=== PATIENT | female | born 1995 | race Caucasian/White ===

== ENCOUNTER 2016-03-11 09:22 | Emergency (ER) | payer OTHER ==
[~2016-03-11] VITALS: Ht 165.1 cm; Wt 47.3 kg
[~2016-03-11 09:22] MED LIST: CIPR-232 PO; CYCL10TA9 PO; Implanon IMPLANT; ONDA4TAB9 PO; OXYC1TAB24 PO; Oxycodone Hcl PO; PHEN-777 PO; SULF1TAB7 PO
[2016-03-11 09:27] VITALS: BP 132/73; PULSE 97; RESP 20; O2SAT 99
--- NOTE | 2016-03-11 09:32 | ED.REPORT ---
HPI-General Illness Date of Service Mar 11, 2016 ED Provider: Kaden Mckoy DO 21 year old female with a reported history of ovarian cysts presents to the ER referred from urgent care after being diagnosed with Bartholin's cyst, ovarian cyst(by bimanual exam only), and UTI three days ago. She states that her symptoms markedly worsened today with increased abdominal pain, nausea, and vomiting. Associated symptoms include low grade fever, and chills. Patient was seen by her OBGYN, Dr. Mixon, two days ago who advised her to continue prescribed antibiotics and follow up with her PCP, Judi ZAFAR, next week. She also notes that she has bilateral low back pain which seems to be worse on the left side. Nursing Notes Stated Complaint: has cysts on antibiotics, vomiting Chief Complaint: Female Abdominal Pain Nursing Notes Reviewed: Yes Allergies: Coded Allergies: ketorolac (Verified Allergy, Unknown, tremors, nausea and vomiting, 03/11/16 ) Scheduled ([Implanon]) 68 MG IMPLANT Q3 years Current Implanon (etonogestrel) implant (L. arm) inserted on 10/06/2011 and will on 10/05/2014. Ciprofloxacin (Cipro) 250 Mg Tablet 500 MG PO BID Cyclobenzaprine (Cyclobenzaprine) 10 Mg Tablet 10 MG PO HS Phenazopyridine (Phenazopyridine) 200 Mg Tablet 200 MG PO TID Sulfamethoxazole/Trimeth 800-160 mg (Bactrim DS) 1 Each Tablet 1 TABLET PO BID Scheduled PRN ([Oxycodone Hcl]) 5 MG TABLET 5-10 MG PO Q4H PRN PRN For Pain Hydrocodone-Acetaminophen 5-325 mg (Hydrocodone-Acetaminophen 5-325 mg) 1 Each Tablet 1 TABLET PO Q4H PRN PRN For Pain Ondansetron ODT (Zofran ODT) 4 Mg Tablet 4 MG PO Q4H PRN PRN For Nausea Ondansetron ODT (Zofran ODT) 4 Mg Tablet 4 MG PO Q4H PRN PRN For Nausea oxyCODONE-Acetaminophen 5-325 mg (oxyCODONE-Acetaminophen 5-325 mg) 1 Each Tablet 1-2 TAB PO Q6H PRN PRN For Pain General Time Seen by MD: 09:31 Chief Complaint Abdominal pain, Vomiting Hx Obtained From: Patient Arrived By: Walk-in Sudden in Onset?: No Onset Occurred: 3 days ago Symptom Duration: Since onset Location: : Abdomen Quality: Painful Severity: Current: Moderate Severity: Maximum: Moderate Associated with: Reports: Fever, Nausea, Vomiting, Denies: Rash Additional Notes: Chills Similar Sx Previous: Yes Past Medical History Past Medical History Fibromyalgia Migraines Anxiety medicated with Xanax Pineal gland cyst Chronic back pain Past Surgical History lara fundoplication Reports: Appendectomy, Tonsillectomy Smoking History Never Smoker Social History Alcohol Use: "Social" Drug Use: Denies drug use Ambulatory Status Independent Review of Systems Full Review of Systems Constitutional: Reports: Chills, Fever Respiratory: Denies: Non-productive cough, Shortness of breath Cardiovascular: Denies: Chest pain GI: Reports: Abdominal pain, Nausea, Vomiting, Denies: Constipation, Diarrhea Female: Reports: Flank pain, Pelvic pain Musculoskeletal: Reports: Back pain, Lumbar pain Skin: Denies Rash Complete sys rev & neg: except as marked. Physical Exam Vital Signs Vital Signs Date Time Temp Pulse Resp B/P Pulse Ox O2 Delivery O2 Flow Rate FiO2 03/11/16 12:53 97 16 129/70 99 Room Air 03/11/16 09:27 36.3 97 20 132/73 99 Initial VS: Reviewed General/Constitutional: Well-developed, Well-nourished Head / Eyes: Atraumatic, Normocephalic Neck: Supple, Non-tender, Full range of motion Extremities: Vascular intact, Neuro intact, No swelling, No tenderness Skin: Warm, Dry, No cyanosis Neurologic: Alert, Oriented, Nonfocal Respiratory / Chest: Breath sounds NL, No respiratory distress, No rales, No rhonchi, No wheezing Cardiovascular: Heart rate NL, Regular rhythm, Heart sounds NL, Cap refill not delayed, Peripheral circulation NL Abdomen: Soft, No guarding, No rebound Tenderness/Guarding/Rebound: Positive: Tender LLQ... (Moderate) Back: Full range of motion Flank / Spine / Paraspinal: Positive: Lumbar spine tender... Bilateral CVA tenderness, Left > Right Female Genitourinary: Slip Dumper present, Atraumatic, External genitalia NL, No lesions or rash No mass Normal appearance Tender left vulva Interpretation & Diagnostics Lab Results Interpretation Result Diagram: 03/11/16 1003 03/11/16 1003 Test 03/11/16 09:40 03/11/16 10:03 Urine Color Straw (YELLOW) Urine Appearance Cloudy (CLEAR,HAZY) Urine pH 8.5 (5.0-8.0) Urine Specific [place] 1.020 (1.003-1.035) Urine Protein Tracemg/dL (NEG,TRACE) Urine Glucose (UA) Negativemg/dL (NEGATIVE) Urine Ketones Negativemg/dL (NEGATIVE) Urine Occult Blood Trace (NEGATIVE) Urine Nitrite Negative (NEGATIVE) Urine Bilirubin Negative (NEGATIVE) Urine Urobilinogen Normalmg/dL (NORMAL) Urine Leukocyte Esterase Moderate (NEGATIVE) Urine RBC 0-2/hpf (0-2) Urine WBC 0-5/hpf (0-5) Urine Epithelial Cells Many/hpf (NONE-MOD) Urine Crystals None seen (NONE SEEN) Urine Bacteria Moderate/hpf (NONE-FEW) Urine Hyaline Casts None/lpf (NONE) Urine Granular Casts None seen (NONE SEEN) Urine Waxy Casts None seen (NONE SEEN) Urine Red Blood Cell Casts None seen (NONE SEEN) Urine White Blood Cell Casts None seen (NONE SEEN) Urine Mucus None seen (None Seen) Urine Trichomonas None seen (NONE SEEN) Urine Yeast Few (NONE SEEN) Urinalysis Comment None Urine Culture Reflexed Indicated White Blood Count 10.6th/mm3 (3.8-10.1) Red Blood Count 4.82mil/mm3 (3.90-5.20) Hemoglobin 14.3g/dL (12.0-15.6) Hematocrit 43.3% (35.0-46.0) Mean Corpuscular Volume 89.8fL (81-100) Mean Corpuscular Hemoglobin 29.7pg (27.0-35.0) Mean Corpuscular Hemoglobin Concent 33.0% (32.0-37.0) Red Cell Distribution Width 13.1% (12.3-15.4) Platelet Count 234bil/L (150-400) Neutrophils (%) (Auto) 73.1% (40-74) Lymphocytes (%) (Auto) 16.6% (14-46) Monocytes (%) (Auto) 9.0% (4-12) Eosinophils (%) (Auto) 0.8% (0-5) Basophils (%) (Auto) 0.2% (0-3) Sodium Level 137mEq/L (134-144) Potassium Level 4.2mEq/L (3.5-5.2) Chloride Level 101mEq/L (97-108) Carbon Dioxide Level 22mmol/L (18-29) Blood Urea Nitrogen 9mg/dL (6-20) Creatinine 0.55mg/dL (0.57-1.00) Estimat Glomerular Filtration Rate 196mL/min (>59) Glucose Level 93mg/dL (60-99) Calcium Level 9.0mg/dL (8.5-10.1) Magnesium Level 2.0mg/dL (1.6-2.6) Total Bilirubin 0.3mg/dL (0.0-1.2) Aspartate Amino Transf (AST/SGOT) 19U/L (0-50) Alanine Aminotransferase (ALT/SGPT) 14U/L (0-32) Alkaline Phosphatase 78U/L (25-150) Total Protein 7.3g/dL (6.4-8.4) Albumin 4.2g/dL (3.4-5.0) Lipase 32U/L (13-60) X-Ray Abdominal Interpretation IMPRESSION: No evidence of obstruction. No free air identified. Dictated by: Olinda Prado MD, PhD on 03/11/2016 at 10:24 Approved by: Olinda Prado MD, PhD on 03/11/2016 at 10:26 Study: 2 view Interpretation / Wet Read by: Interpret - Radiologist CT Abd / Pelvis Interpretation IMPRESSION: 1. No renal stone or hydronephrosis. 2. No free fluid or air. 3. No dilated loops of bowel. Dictated by: Olinda Prado MD, PhD on 03/11/2016 at 11:39 Approved by: Olinda Prado MD, PhD on 03/11/2016 at 11:42 Study type: Abdominal CT no contrast Interpretation / Wet Read by: Interpret - Radiologist Re-Eval/Medical Decision Med Decision/Clinical Course 21-year-old presenting with left lower quadrant abdominal pain, left-sided back pain, and concern for a Bartholin's cyst. On examination no abnormalities were noted other than a tender left labia. She shows me a picture on her phone of one this cyst flares up. It appears to be more edema of the left labia and a definitive cyst, but I can appreciate no similarities between her picture and her current exam today. I advised her to continue her antibiotic as prescribed and that there is no role for a procedure at this time. Given her left-sided CVA tenderness and left lower quadrant tenderness in light of hematuria CT KUB was performed which returned negative ruling out renal stones. No other abdominal pathology was noted on the scan. Patient was feeling better after antiemetics and pain medicine. Plan have her follow-up with PCP for further evaluation/recheck. Patient understands and agrees Source of Hx: Old records Time of Eval: 10:53 Re-Evaluation/Progress Note: Patient is still in pain. She reports that she vomited her oxycodone and is requesting nausea medication. Discussed lab results and need for CT. Time of Eval: 12:28 Patient Status: Moderate relief, Pain improved Re-Evaluation/Progress Note: Patient's pain is improved to 5/10 down from 7/10 in severity. Discussed lab and radiology results and plan to discharge. Patient is amenable to the plan. Return precautions given. All other questions addressed. Counseled Regarding: Diagnosis, Lab results, Need for follow-up, When/why to return to ED Discharge & Departure Primary Impression: Abdominal pain Abdominal location: left lower quadrant Qualified Code: R10.32 - Left lower quadrant pain Additional Impressions: Flank pain Hematuria Disposition: Home Discharge Condition All VS Reviewed: Yes Condition: Stable Patient Instructions: Acute Abdominal Pain (ED) Additional Instructions: Your workup today was reassuring. It is difficult to determine the reason for your pain here in the ER, but I do not believe that there is any dangerous cause for your symptoms at this time. Your lab results, x-ray, and CT scan were all normal. Keep your follow-up appointment with your primary care provider. Finish your antibiotics. Take hydrocodone as directed for pain. Do not drink alcohol or drive while taking hydrocodone. Use Zofran as directed for nausea. Return to the ER if you develop fever, chills, or other worsening or concerning symptoms. Referrals: Judi Batres (PCP) Scribe Attestation Portions of this note were transcribed by Dwight Eduardo. I, Dr. Mckoy personally performed the history, physical exam and medical decision-making; I reviewed and confirmed the accuracy of the information in the transcribed note. Signed by: Deidra Hughes, 03/11/2016 and 12:58 copies to: Judi Batres Gary R DO Mar 11, 2016 09:32 DWIGHT EDUARDO Mar 11, 2016 09:45
[2016-03-11] MEDS ORDERED: Ondansetron 2 mg/mL 2 mL Inj IVPUSH PRN (09:50)
[2016-03-11] MEDS ORDERED: oxyCODONE-Acetamin 10-325 mg Tablet PO ONE (10:05)
[2016-03-11 10:08] LABS: BASOPHILS % (AUTO) 0.2 % (0-3); EOSINOPHILS % (AUTO) 0.8 % (0-5); Mean Corpuscular Hemoglobin 29.7 pg (27.0-35.0); Mean Corpuscular Volume 89.8 fL (81-100); NEUTROPHILS % (AUTO) 73.1 % (40-74); Platelet Count 234 bil/L (150-400)
--- NOTE | 2016-03-11 10:28 | DRSVH ---
PROCEDURE: X-RAY ACUTE ABDOMINAL SERIES ([id number]) INDICATIONS: Left lower quadrant abdominal pain TECHNIQUE: One view chest and two views of the abdomen were acquired. COMPARISON: [facility], CT, CT ABD PELVIS W CON, 11/23/2015, 1:12. FINDINGS: Surgical changes and devices: Piercing hardware noted in the chest and midabdomen. Chest: Lungs are clear. Heart size is normal. No pleural effusions. No pneumoperitoneum. Abdomen: Bowel gas pattern is normal. No suspicious calcifications. Visualized solid organ contour s appear normal. Bones: No suspicious bony lesions. IMPRESSION: No evidence of obstruction. No free air identified. Dictated by: Olinda Prado MD, PhD on 03/11/2016 at 10:24 Approved by: Olinda Prado MD, PhD on 03/11/2016 at 10:26
[2016-03-11 10:30] LABS: APPEARANCE,URINE CLOUDY (CLEAR,HAZY); COLOR,URINE STRAW (YELLOW); OCCULT BLOOD,URINE TRACE (NEGATIVE); PH,URINE 8.5 (5.0-8.0); UROBILINOGEN,URINE NORMAL (NORMAL)
[2016-03-11 10:31] LABS: YEAST,URINE FEW (NONE SEEN)
[2016-03-11] MEDS ORDERED: HYDROmorphone 1 mg/mL Inj IVPUSH ONE (10:55)
--- NOTE | 2016-03-11 11:44 | DRSVH ---
PROCEDURE: CT KUB ([id number]) INDICATIONS: hematuria, L flank pain TECHNIQUE: Noncontrast 5 mm thick sections acquired from the diaphragms to the symphysis. 5 mm thick coronal an d sagittal reformats were then performed. For radiation dose reduction, the following was used: aut omated exposure control, adjustment of mA and/or kV according to patient size. COMPARISON: None. FINDINGS: Image quality: Excellent. Lung bases: Lung bases are clear. Heart size is normal. Urinary system: Both kidneys are normal in size. No kidney stones. No hydronephrosis or perinephri c fat stranding. Both ureters appear non-dilated throughout their expected courses. Bladder wall th ickness is normal; no calcified bladder stones. Other solid organs: Liver and spleen are normal in size. Gallbladder within normal limits. Pancrea s is normal in contours. No adrenal nodules. Peritoneum and bowel: Unenhanced bowel loops demonstrate normal wall thickness and caliber. No free fluid or air. The appendix contains a small appendicolith, but otherwise has a normal appearance. Nodes and vessels: No retroperitoneal or mesenteric adenopathy by size criteria. Aorta and inferior vena cava are normal in caliber. Abdominal wall: No ventral hernias. Pelvis: No free pelvic fluid. No inguinal hernias or adenopathy. Small right adnexal cyst is noted. Bones: No suspicious bony lesions. No vertebral body compression fractures. IMPRESSION: 1. No renal stone or hydronephrosis. 2. No free fluid or air. 3. No dilated loops of bowel. Dictated by: Olinda Prado MD, PhD on 03/11/2016 at 11:39 Approved by: Olinda Prado MD, PhD on 03/11/2016 at 11:42
[2016-03-11] MEDS ORDERED: ONDA4TAB9 PO (12:41)
[2016-03-11] MEDS ORDERED: HYDR-4003 PO (12:41)
[2016-03-11 12:53] VITALS: BP 129/70; PULSE 97; RESP 16; O2SAT 99
== END 2016-03-11 12:54 | disposition home or self-care (01) ==
LOC: SED 09:22
DX: R10.32 Left lower quadrant pain (principal); R31.9 Hematuria, unspecified; M54.5 Low back pain; G89.29 Other chronic pain; Z87.42 Personal history of other diseases of the female genital tract; Z88.6 Allergy status to analgesic agent
CPT/HCPCS: 36415; 74022; 74176; 80053; 81000; 81025; 83690; 83735; 85025; 87086; 87088; 96374; 96375; 99285; J1170; J2405

== ENCOUNTER 2016-03-22 17:23 | Emergency (ER) | payer OTHER ==
[~2016-03-22 17:23] MED LIST changes: +HYDR-4003 PO
[2016-03-22 17:48] VITALS: BP 121/70; PULSE 91; RESP 18; O2SAT 99
== END 2016-03-22 18:50 | disposition left against medical advice (07) ==
LOC: SED 17:23
DX: Z53.29 Procedure and treatment not carried out because of patient's decision for other reasons (principal)

== ENCOUNTER 2016-04-03 19:47 | Emergency (ER) | payer OTHER ==
[~2016-04-03] VITALS: Ht 165.1 cm; Wt 47.7 kg
[2016-04-03 20:10] VITALS: BP 117/79; PULSE 111; RESP 18; O2SAT 100
--- NOTE | 2016-04-03 21:06 | ED.REPORT ---
HPI-Abd Pain F Under 40 Date of Service Apr 03, 2016 ED Provider: Darell Crews MD 21 year old female with a history of frequent UTI's, kidney infections, and ovarian cysts presents to the ER complaining of sharp abdominal vs pelvic pain onset last night. Associated symptoms include a feeling of "fullness" in the lower abdomen, difficulty urinating, vomiting, chest pain, and low back pain. Patient denies fever, diarrhea, vaginal bleeding/discharge, and current . Last normal menstrual period was a week ago. Nursing Notes Stated Complaint: PELVIC, STOMACH & BACK PAIN Chief Complaint: Female Abdominal Pain Nursing Notes Reviewed: Yes Allergies: Coded Allergies: ketorolac (Verified Allergy, Unknown, tremors, nausea and vomiting, ) Scheduled ([Implanon]) 68 MG IMPLANT Q3 years Current Implanon (etonogestrel) implant (L. arm) inserted on 10/06/2011 and will on 10/05/2014. Ciprofloxacin (Cipro) 250 Mg Tablet 500 MG PO BID Ciprofloxacin (Ciprofloxacin) 500 Mg Tablet 500 MG PO BID Cyclobenzaprine (Cyclobenzaprine) 10 Mg Tablet 10 MG PO HS Phenazopyridine (Phenazopyridine) 200 Mg Tablet 200 MG PO TID Sulfamethoxazole/Trimeth 800-160 mg (Bactrim DS) 1 Each Tablet 1 TABLET PO BID Scheduled PRN ([Oxycodone Hcl]) 5 MG TABLET 5-10 MG PO Q4H PRN PRN For Pain Hydrocodone-Acetaminophen 5-325 mg (Hydrocodone-Acetaminophen 5-325 mg) 1 Each Tablet 1 TABLET PO Q4H PRN PRN For Pain Ondansetron ODT (Zofran ODT) 4 Mg Tablet 4 MG PO Q4H PRN PRN For Nausea Ondansetron ODT (Zofran ODT) 4 Mg Tablet 4 MG PO Q4H PRN PRN For Nausea Ondansetron ODT (Zofran ODT) 4 Mg Tablet 4 MG PO Q4H PRN PRN For Nausea oxyCODONE-Acetaminophen 5-325 mg (oxyCODONE-Acetaminophen 5-325 mg) 1 Each Tablet 1-2 TAB PO Q6H PRN PRN For Pain General Time Seen by MD: 21:03 Chief Complaint Abdominal pain Hx Obtained From: Patient Arrived By: Walk-in Sudden in Onset?: No Onset Occurred: Yesterday Symptom Duration: Since onset Progression since Onset: Gradually worsening Location: : Abdomen lower: Pelvis Quality: Painful, Sharp Radiation: : Back Severity: Current: Moderate Severity: Maximum: Moderate Associated with: Reports: Nausea, Vomiting, Denies: Diarrhea, Fever, Vaginal bleeding, Vaginal discharge Context Related History: Reports: Urinary tract infection Similar Sx Previous: Yes Past Medical History Past Medical History Fibromyalgia Migraines Anxiety medicated with Xanax Pineal gland cyst Chronic back pain Past Surgical History lara fundoplication Reports: Appendectomy, Tonsillectomy Smoking History Never Smoker Social History Alcohol Use: "Social" Drug Use: Denies drug use Ambulatory Status Independent Review of Systems Constitutional: Denies: Chills, Fever Respiratory: Denies: Non-productive cough, Shortness of breath Cardiovascular: Reports: Chest pain GI: Reports: Abdominal pain, Nausea, Vomiting, Denies: Diarrhea Female: Reports: Pelvic pain, Urination decreased, Denies: Hematuria, , Vaginal bleeding - abnl, Vaginal discharge Musculoskeletal: Reports: Back pain Complete sys rev & neg: except as marked. Physical Exam Initial Vital Signs Vital Signs (First) Date Time Temp Pulse Resp B/P Pulse Ox O2 Delivery O2 Flow Rate FiO2 04/03/16 20:10 37.1 111 18 117/79 100 Room Air Initial VS: Reviewed Head / Eyes: Atraumatic, Normocephalic Neck: Supple, Non-tender, Full range of motion Extremities: Vascular intact, Neuro intact, No swelling, No tenderness Skin: Warm, Dry, No cyanosis Neurologic: Alert, Oriented, Nonfocal Respiratory / Chest: Breath sounds NL, Breath sounds = bilat, No respiratory distress, No rales, No rhonchi, No wheezing Cardiovascular: Heart rate NL, Regular rhythm, Heart sounds NL, Peripheral circulation NL Abdomen: Soft Tenderness/Guarding/Rebound: Positive: Tender suprapubic Moderate diffuse abdominal tenderness. Back: Full range of motion, No midline vertebral tend Left CVA tenderness. Interpretation & Diagnostics Lab Results Interpretation Result Diagram: 04/03/16 2100 04/03/16 2100 Test 04/03/16 21:00 04/03/16 21:53 White Blood Count 14.1th/mm3 (3.8-10.1) Red Blood Count 4.54mil/mm3 (3.90-5.20) Hemoglobin 13.7g/dL (12.0-15.6) Hematocrit 40.5% (35.0-46.0) Mean Corpuscular Volume 89.2fL (81-100) Mean Corpuscular Hemoglobin 30.2pg (27.0-35.0) Mean Corpuscular Hemoglobin Concent 33.8% (32.0-37.0) Red Cell Distribution Width 13.3% (12.3-15.4) Platelet Count 239bil/L (150-400) Neutrophils (%) (Auto) 69.0% (40-74) Lymphocytes (%) (Auto) 22.1% (14-46) Monocytes (%) (Auto) 7.4% (4-12) Eosinophils (%) (Auto) 0.9% (0-5) Basophils (%) (Auto) 0.3% (0-3) Sodium Level 140mEq/L (134-144) Potassium Level 4.1mEq/L (3.5-5.2) Chloride Level 102mEq/L (97-108) Carbon Dioxide Level 26mmol/L (18-29) Blood Urea Nitrogen 13mg/dL (6-20) Creatinine 0.69mg/dL (0.57-1.00) Estimat Glomerular Filtration Rate 151mL/min (>59) Glucose Level 88mg/dL (60-99) Lactic Acid Level 0.7mmol/L (0.4-2.0) Calcium Level 8.6mg/dL (8.5-10.1) Magnesium Level 2.0mg/dL (1.6-2.6) Total Bilirubin 0.7mg/dL (0.0-1.2) Aspartate Amino Transf (AST/SGOT) 20U/L (0-50) Alanine Aminotransferase (ALT/SGPT) 15U/L (0-32) Alkaline Phosphatase 81U/L (25-150) Troponin T 0.010ug/L (0.0-0.011) Total Protein 7.0g/dL (6.4-8.4) Albumin 4.2g/dL (3.4-5.0) Lipase 15U/L (13-60) Hold [place] Top Tube Received (Received) Urine Color Yellow (YELLOW) Urine Appearance Cloudy (CLEAR,HAZY) Urine pH 6.5 (5.0-8.0) Urine Specific [place] 1.030 (1.003-1.035) Urine Protein 100mg/dL (NEG,TRACE) Urine Glucose (UA) Negativemg/dL (NEGATIVE) Urine Ketones Negativemg/dL (NEGATIVE) Urine Occult Blood Large (NEGATIVE) Urine Nitrite Negative (NEGATIVE) Urine Bilirubin Negative (NEGATIVE) Urine Urobilinogen Normalmg/dL (NORMAL) Urine Leukocyte Esterase Small (NEGATIVE) Urine RBC 3-10/hpf (0-2) Urine WBC >50/hpf (0-5) Urine Epithelial Cells Many/hpf (NONE-MOD) Urine Crystals None seen (NONE SEEN) Urine Bacteria Moderate/hpf (NONE-FEW) Urine Hyaline Casts Rare/lpf (NONE) Urine Granular Casts None seen (NONE SEEN) Urine Waxy Casts None seen (NONE SEEN) Urine Red Blood Cell Casts None seen (NONE SEEN) Urine White Blood Cell Casts None seen (NONE SEEN) Urine Mucus Present (None Seen) Urine Trichomonas None seen (NONE SEEN) Urine Yeast None (NONE SEEN) Urinalysis Comment None Urine Culture Reflexed Indicated ECG Interpretation ECG Interpretation: Sinus rhythm, rate [address] T changes Time: 21:20 Interpreted by: ED physician X-Ray Chest Interpretation Chest Xray Interpretation: IMPRESSION: No acute disease Dictated by: Dank Bearden M.D. on 04/03/2016 at 21:54 Approved by: Dank Bearden M.D. on 04/03/2016 at 21:54 View: Portable, 1 view Interpretation / Wet Read by: Interpret - Radiologist US Renal/Urinary Tract CONCLUSION: No specific or active process. Electronically signed by Drew Canales MD Exam Performed by: [facility] pract Exam Type: Diagnostic Clinical Category: Symptom-based Exam Interpreted by: Radiologist Re-Eval/Medical Decision Med Decision/Clinical Course Med Decision/Clinical Course: 21-year-old female chronic UTIs, ovarian cysts presenting complaining of difficulty voiding and abdominal pain times one day. Gradual onset. She has moderate suprapubic tenderness and left CVA tenderness on exam. Ultrasound no hydronephrosis. White blood cell count is elevated. Her lactate is normal. Heart rate was initially elevated normalized with IV fluids. Patient was given one dose of Rocephin. She felt much better. She would like to go home. We will treat with oral antibiotics ciprofloxacin. Recommend follow-up with primary doctor 1-2 days. Return precautions given. Source of Hx: Old records Re-Evaluation/Progress : Re-Evaluation/Progress Note: Discussed lab and radiology results and plan to discharge. Patient is amenable to the plan. Return precautions given. All other questions addressed. Counseled Regarding: Diagnosis, Lab results, Need for follow-up, When/why to return to ED Discharge & Departure Primary Impression: Pyelonephritis Disposition: Home Discharge Condition All VS Reviewed: Yes Condition: Stable Patient Instructions: Acute Pyelonephritis (DC) Additional Instructions: Your workup today was reassuring. I do not believe that there is any dangerous cause for your symptoms at this time. I have prescribed a course of ciprofloxacin. Please take as directed. Call your primary care provider to arrange a follow-up appointment in 1-2 days. Return to the ER if you develop uncontrollable pain, high fever, chills, pain with urination, blood in your urine, incontinence, or any other concerning symptoms. Referrals: Judi Batres (PCP) Deidra Attestation Portions of this note were transcribed by Dwight Eduardo. I, Dr. Crews, personally performed the history, physical exam and medical decision-making; I reviewed and confirmed the accuracy of the information in the transcribed note. Signed by: Deidra Hughes, 04/03/2016 - 23:30 copies to: Judi Batres Ben M MD Apr 03, 2016 21:06 DWIGHT EDUARDO Apr 03, 2016 21:21
[2016-04-03] MEDS ORDERED: 0.9% Sodium Chloride 1,000 ML IV ONE ×2 (21:18→22:10)
[2016-04-03] MEDS ORDERED: Ondansetron 2 mg/mL 2 mL Inj IVPUSH PRN (21:20)
[2016-04-03 21:21] LABS: BASOPHILS % (AUTO) 0.3 % (0-3); EOSINOPHILS % (AUTO) 0.9 % (0-5); MONOCYTES % (AUTO) 7.4 % (4-12); Mean Corpuscular Hemoglobin 30.2 pg (27.0-35.0); Mean Corpuscular Volume 89.2 fL (81-100); Platelet Count 239 bil/L (150-400)
[2016-04-03] MEDS ORDERED: cefTRIAXone Inj 2,000 MG in Dextrose 5% Minibag Plus 50 ML IV ONE (21:55)
--- NOTE | 2016-04-03 21:56 | DRSVH ---
PROCEDURE: X-RAY CHEST ONE VIEW, PORTABLE ([id number]) INDICATIONS: chest pain TECHNIQUE: One view of the chest was acquired. COMPARISON: None. FINDINGS: Surgical changes and devices: None. Lungs and pleura: No pleural effusions or pneumothorax. Lungs are clear. Mediastinum: Mediastinal contours appear normal. Heart size is normal. Bones and chest wall: No suspicious bony lesions. Overlying soft tissues appear unremarkable. IMPRESSION: No acute disease Dictated by: Dank Bearden M.D. on 04/03/2016 at 21:54 Approved by: Dank Bearden M.D. on 04/03/2016 at 21:54
[2016-04-03 22:01] LABS: TROPONIN T 0.01 ug/L (0.0-0.011)
[2016-04-03 22:07] LABS: COLOR,URINE YELLOW (YELLOW)
[2016-04-03 22:08] LABS: APPEARANCE,URINE CLOUDY (CLEAR,HAZY); OCCULT BLOOD,URINE LARGE (NEGATIVE); PH,URINE 6.5 (5.0-8.0); UROBILINOGEN,URINE NORMAL (NORMAL)
[2016-04-03 23:02] VITALS: BP 104/42; PULSE 85; RESP 11; O2SAT 100
[2016-04-03] MEDS ORDERED: CIPR-198 PO (23:26)
[2016-04-03] MEDS ORDERED: ONDA4TAB9 PO (23:26)
[2016-04-03 23:50] VITALS: BP 101/55; PULSE 96; RESP 27; O2SAT 100
[2016-04-03 23:58] VITALS: BP 101/55; PULSE 96; RESP 27; O2SAT 100
[2016-04-03] MEDS ORDERED: HYDR-4003 PO (23:59)
--- NOTE | 2016-04-04 09:30 | DRSVH ---
PROCEDURE: US RENAL SONOGRAM INDICATIONS: L CVA tenderness TECHNIQUE: Real-time scanning was performed of the kidneys and bladder, with image documentation. COMPARISON: [facility], CT, CT KUB, 03/11/2016, 11:25. FINDINGS: Kidneys: Kidneys are normal in size. Right kidney measures 9.9 cm long; left kidney measures 9.6 cm long. Right renal cortical thickness is 1.1 cm; left renal cortical thickness is 1.2 cm. Renal cor tical echotexture is normal. No hydronephrosis or nephrolithiasis. No suspicious solid mass lesions . Bladder: Urinary bladder is collapsed around a Silva catheter. Miscellaneous: No free pelvic fluid. IMPRESSION: Grossly normal appearance of the kidneys. Dictated by: Jorge DAVEY Interpreted: Bria Castillo MD on 04/04/2016 at 9:27 Transcribed by: BRIGIDO on 04/04/2016 at 9:29 Approved by: Bria Castillo M.D. on 04/05/2016 at 9:23
== END 2016-04-04 00:04 | disposition home or self-care (01) ==
LOC: SED 19:47
DX: N10 Acute pyelonephritis (principal); B95.7 Other staphylococcus as the cause of diseases classified elsewhere; Z87.440 Personal history of urinary (tract) infections; Z87.42 Personal history of other diseases of the female genital tract; Z88.6 Allergy status to analgesic agent
CPT/HCPCS: 36415; 51702; 71010; 76770; 80053; 81000; 81025; 83605; 83690; 83735; 84484; 85025; 87077; 87086; 87088; 93005; 96361; 96365; 96375; 96376; 99285; J0696; J2270; J2405; J7030

== ENCOUNTER 2016-05-19 22:16 | Emergency (ER) | payer OTHER ==
[~2016-05-19] VITALS: Ht 165.1 cm; Wt 50.0 kg
[~2016-05-19 22:16] MED LIST changes: +CIPR-198 PO
[2016-05-19 22:18] VITALS: BP 104/64; PULSE 72; RESP 16; O2SAT 100
[2016-05-19 22:54] LABS: BASOPHILS % (AUTO) 0.2 % (0-3); MONOCYTES % (AUTO) 10.7 % (4-12); Mean Corpuscular Hemoglobin 29.8 pg (27.0-35.0); Mean Corpuscular Volume 89.5 fL (81-100); NEUTROPHILS % (AUTO) 63.3 % (40-74); Platelet Count 246 bil/L (150-400)
--- NOTE | 2016-05-19 22:56 | ED.REPORT ---
HPI-Chest Pain Under 40 Date of Service May 19, 2016 ED Provider: Fred Jimenez MD The patient is a 21 year old female w/ a hx of frequent UTI's, kidney infections , and ovarian cysts presents to the ED due to coughing up blood 2 times in the past hour. She has had chest pain for the past couple hours and describes the pain as "sharp and pulsating." Pt also c/o of an inconsistent, low-grade fever over the past few days. The pt has also noticed noticed unexplained bruising a couple days ago on her hands, arms, and legs. She has never had problems with easy bruising in the past. Her mother from leukemia at age 55. She does not take any blood thinners or medication of any kind. The pt is 6 weeks . Nursing Notes Stated Complaint: CHEST PAIN/ VOMITING Chief Complaint: Chest Pain Nursing Notes Reviewed: Yes ([place], [place] not reconciled) Allergies: Coded Allergies: ketorolac (Verified Allergy, Unknown, tremors, nausea and vomiting, ) tramadol (Verified Allergy, Unknown, "sick", 05/19/16) Scheduled ([Implanon]) 68 MG IMPLANT Q3 years Current Implanon (etonogestrel) implant (L. arm) inserted on 10/06/2011 and will on 10/05/2014. Ciprofloxacin (Cipro) 250 Mg Tablet 500 MG PO BID Ciprofloxacin (Ciprofloxacin) 500 Mg Tablet 500 MG PO BID Cyclobenzaprine (Cyclobenzaprine) 10 Mg Tablet 10 MG PO HS Phenazopyridine (Phenazopyridine) 200 Mg Tablet 200 MG PO TID Sulfamethoxazole/Trimeth 800-160 mg (Bactrim DS) 1 Each Tablet 1 TABLET PO BID Scheduled PRN ([Oxycodone Hcl]) 5 MG TABLET 5-10 MG PO Q4H PRN PRN For Pain Hydrocodone-Acetaminophen 5-325 mg (Hydrocodone-Acetaminophen 5-325 mg) 1 Each Tablet 1 TABLET PO Q4H PRN PRN For Pain Hydrocodone-Acetaminophen 5-325 mg (Hydrocodone-Acetaminophen 5-325 mg) 1 Each Tablet 1 TABLET PO Q4H PRN PRN For Pain Ondansetron ODT (Zofran ODT) 4 Mg Tablet 4 MG PO Q4H PRN PRN For Nausea Ondansetron ODT (Zofran ODT) 4 Mg Tablet 4 MG PO Q4H PRN PRN For Nausea Ondansetron ODT (Zofran ODT) 4 Mg Tablet 4 MG PO Q4H PRN PRN For Nausea oxyCODONE-Acetaminophen 5-325 mg (oxyCODONE-Acetaminophen 5-325 mg) 1 Each Tablet 1-2 TAB PO Q6H PRN PRN For Pain General Time Seen by MD: 22:54 Chief Complaint Other (coughing up blood) Hx Obtained From: Patient Arrived By: Walk-in Sudden in Onset?: Yes Onset Occurred: 1 - 4 hours ago Symptom Duration: Since onset Location: : Chest left Quality: Painful, Sharp Radiation: : Does not radiate Severity: Current: Mild Recent Healthcare: No recent doctor visit, No recent hospitalization Similar Sx Previous: No Past Medical History Past Medical History Fibromyalgia Migraines Anxiety medicated with Xanax Pineal gland cyst Chronic back pain Past Surgical History lara fundoplication Reports: Appendectomy, Tonsillectomy Smoking History Never Smoker Social History Alcohol Use: "Social" Drug Use: Denies drug use Other Social History: Good social support Ambulatory Status Independent Review of Systems Constitutional: Reports: Fever Respiratory: Reports: Prod cough, bloody Cardiovascular: Reports: Chest pain Skin: Reports Bruising Complete sys rev & neg: except as marked. Physical Exam Initial Vital Signs Vital Signs (First) Date Time Temp Pulse Resp B/P Pulse Ox O2 Delivery O2 Flow Rate FiO2 05/19/16 22:18 36.5 72 16 104/64 100 Room Air Initial VS: Reviewed, Vital signs normal Head / Eyes: Atraumatic, Normocephalic, PERRL ENT: Mucous membranes moist, Conjunctiva normal Abdomen / GI: Soft, Non-tender, No guarding, No rebound, No distention Extremities: Vascular intact, Neuro intact, No swelling Skin: Warm, Dry General/Constitutional: Awake, Cooperative Behavior: Positive: Anxious Respiratory / Chest: Atraumatic, Breath sounds NL, Breath sounds = bilat Cardiovascular: Heart rate NL, Regular rhythm, Heart sounds NL Interpretation & Diagnostics Lab Results Interpretation Result Diagram: 05/19/16223905/19/162239 Test 05/19/16 22:40 White Blood Count 12.0th/mm3 (3.8-10.1) Red Blood Count 4.29mil/mm3 (3.90-5.20) Hemoglobin 12.8g/dL (12.0-15.6) Hematocrit 38.4% (35.0-46.0) Mean Corpuscular Volume 89.5fL (81-100) Mean Corpuscular Hemoglobin 29.8pg (27.0-35.0) Mean Corpuscular Hemoglobin Concent 33.3% (32.0-37.0) Red Cell Distribution Width 13.5% (12.3-15.4) Platelet Count 246bil/L (150-400) Neutrophils (%) (Auto) 63.3% (40-74) Lymphocytes (%) (Auto) 24.6% (14-46) Monocytes (%) (Auto) 10.7% (4-12) Eosinophils (%) (Auto) 1.0% (0-5) Basophils (%) (Auto) 0.2% (0-3) Prothrombin Time 10.4sec (8.1-12.5) Prothromb Time International Ratio 0.97ratio Activated Partial Thromboplast Time 25.6sec (22.8-33.0) D-Dimer < 0.50mg/L FEU (<0.50) Urine Color Yellow (YELLOW) Urine Appearance Clear (CLEAR,HAZY) Urine pH 8.5 (5.0-8.0) Urine Specific [place] 1.015 (1.003-1.035) Urine Protein 30mg/dL (NEG,TRACE) Urine Glucose (UA) Negativemg/dL (NEGATIVE) Urine Ketones Negativemg/dL (NEGATIVE) Urine Occult Blood Trace (NEGATIVE) Urine Nitrite Negative (NEGATIVE) Urine Bilirubin Negative (NEGATIVE) Urine Urobilinogen Normalmg/dL (NORMAL) Urine Leukocyte Esterase Moderate (NEGATIVE) Urine RBC 0-2/hpf (0-2) Urine WBC 6-10/hpf (0-5) Urine Epithelial Cells Occasional/hpf (NONE-MOD) Urine Crystals None seen (NONE SEEN) Urine Bacteria None/hpf (NONE-FEW) Urine Hyaline Casts None/lpf (NONE) Urine Granular Casts None seen (NONE SEEN) Urine Waxy Casts None seen (NONE SEEN) Urine Red Blood Cell Casts None seen (NONE SEEN) Urine White Blood Cell Casts None seen (NONE SEEN) Urine Mucus None seen (None Seen) Urine Trichomonas None seen (NONE SEEN) Urine Yeast None (NONE SEEN) Urinalysis Comment None Urine Culture Reflexed Indicated Hold Urine Received (Received) Sodium Level 129mEq/L (134-144) Potassium Level 3.6mEq/L (3.5-5.2) Chloride Level 97mEq/L (97-108) Carbon Dioxide Level 23mmol/L (18-29) Blood Urea Nitrogen 7mg/dL (6-20) Creatinine 0.49mg/dL (0.57-1.00) Estimat Glomerular Filtration Rate 224mL/min (>59) Glucose Level 97mg/dL (60-99) Calcium Level 8.6mg/dL (8.5-10.1) Magnesium Level 2.0mg/dL (1.6-2.6) Total Bilirubin 0.7mg/dL (0.0-1.2) Aspartate Amino Transf (AST/SGOT) 14U/L (0-50) Alanine Aminotransferase (ALT/SGPT) 12U/L (0-32) Alkaline Phosphatase 65U/L (25-150) Troponin T 0.010ug/L (0.0-0.011) Total Protein 6.7g/dL (6.4-8.4) Albumin 4.0g/dL (3.4-5.0) HCG Beta Subunit [id number]/mL Hold [place] Top Tube Received (Received) Lab Results Interpretation: CBC mild leukocytosis CMP mild hyponatremia INR normal PTT normal D-dimer negative positive ECG Interpretation ECG Interpretation: no acute ischemic or rhythmic abnormalities no findings to suggest a pulmonary embolism Time: 10:30 Interpreted by: ED physician Normal ECG Interpretation: Normal rate (82), Normal sinus rhythm X-Ray Chest Interpretation Chest Xray Interpretation: no acute findings View: Portable Interpretation / Wet Read by: Wet read ED physician Re-Eval/Medical Decision Med Decision/Clinical Course This is a 21-year-old female reports she was referred in by her PCP for further evaluation of a multitude of complaints. She is noted some bruising of her arms over the past couple days, she is newly and is about 6 weeks , and is very concerned about a bleeding disorder. She has had no major bleeding problems before, she has had previous surgery without difficulties, no history of menorrhagia, no family history of blood dyscrasia is not on anticoagulants. However when she was seen yesterday PCPs for this, she reports she was instructed if she developed new symptoms such as chest pain , or coughing up blood or vomiting blood she would need to come to the emergency Department. Tonight she reports she coughed, and she had some mucus, mixed with some blood-she called the line and was advised to come to the ED. She reports some sharp chest pain, atypical-not even pleuritic. She has had no fever, no chronic cough, no diaphoresis, no high risk features to really suggest pulmonary embolus. She has no family history or risk factors beyond early for PE. She has normal vitals in the department with no tachycardia, no hypoxia, no hypertension. Patient clinically appears well but anxious. EKG is normal. Given she described hemoptysis, despite being a chest x -ray was warranted-it was obtained but negative. Abdominal shielding was used. Blood work was normal, including normal blood counts, normal platelet counts, she is not anemic, coagulation studies are normal-no markers of a dangerous cause of the bruising she is noticed were identified. Her d-dimer is negative, and this low resident presentation excludes pulmonary embolism. I do not find any evidence of a pneumonia, pneumothorax or other dangerous etiology. And again has normal vitals, clinically appears well, and is being reassured. She is discharged in improved condition. She has a PCP follow-up later this week. Routine precautions reviewed. Source of Hx: Old records Re-Evaluation/Progress : Time of Eval: 01:00 Re-Evaluation/Progress Note: Pt rechecked. She is resting comfortably. Informed pt of normal lab results and imaging. F/U and RTER warnings given. Pt understands and agrees with plan. Differential Diagnosis: Positive: Chest pain, acute, Negative: Acute coronary syndrome, Acute myocardial infarct, Dysrhythmia, Esophageal rupture, Gun shot wound chest, Pleurisy, Pneumomediastinum, Pneumonia , Pneumothorax, Pulmonary edema, Pulmonary embolism, Stab wound chest Counseled Regarding: Diagnosis, Lab results, Need for follow-up, When/why to return to ED Discharge & Departure Primary Impression: Chest pain Chest pain type: unspecified Qualified Code: R07.9 - Chest pain, unspecified Additional Impressions: Bruising Cough Weeks of gestation: less than 8 weeks Qualified Code: Z3A.01 - Less than 8 weeks gestation of Disposition: Home Discharge Condition All VS Reviewed: Yes Condition: Stable Additional Instructions: 1. A dangerous cause of the chest discomfort was not identified. 2. Your blood tests were all normal. There were no findings of a problem with your clotting, her blood counts were normal, you are not anemic, your platelet counts are normal. 3. There were no findings of a dangerous condition called pulmonary embolus on your testing today because of cough with blood. 4. Your chest x-ray was normal. 5. The most common cause of coughing up blood is a case of bronchitis, this usually is benign and was also time. That is expected here. 6. Take tylenol 1000 mg up to 3 times a day. It is the safest medication for discomfort and . If absolutely needed for more severe pain, you can take hydrocodone/APAP 5 mg 1 tab up to 3 times a day. Note: This medication contains narcotic, and should be used very sparingly, if at all. It also contains some Tylenol. He should not drive for 4-6 hours after taking. 7. Additionally take ondansetron 8 mg (let dissolve underneath tongue) up to every 4 hours as needed for nausea. 8. Keep your appointment with her primary care physician this week, and with OB in a few weeks. 9.. Return if new or worsening symptoms. Referrals: Judi Batres (PCP) Robe Attestation Portion of this note were transcribed by Lupe Saravia. I, Dr. Jimenez, personally performed the history, physical exam, and medical decision-making: I reviewed and confirmed the accuracy for the information in the transcribed note. Signed by: robe Ly, 05/19/16 2300 copies to: Judi Batres Matthew F MD May 19, 2016 22:56 Lupe Saravia May 19, 2016 23:03
[2016-05-19] MEDS ORDERED: Ondansetron 2 mg/mL 2 mL Inj IVPUSH ONE (23:05)
[2016-05-19] MEDS: HYDROmorphone 0.5 mg/0.5 mL iSecure Syringe IVPUSH PRN ×3 (23:14→23:47)
[2016-05-19 23:31] VITALS: BP 114/57; PULSE 84; RESP 12; O2SAT 100
[2016-05-19 23:34] LABS: D-Dimer < 0.50 mg/L FEU (<0.50); INR 0.97 ratio
[2016-05-19 23:41] LABS: TROPONIN T 0.01 ug/L (0.0-0.011)
[2016-05-20 00:14] VITALS: BP 106/53; PULSE 71; RESP 10; O2SAT 98
[2016-05-20 00:24] VITALS: BP 113/59; PULSE 77
[2016-05-20] MEDS: HYDROmorphone 0.5 mg/0.5 mL iSecure Syringe IVPUSH PRN (00:24)
[2016-05-20 01:00] LABS: APPEARANCE,URINE CLEAR (CLEAR,HAZY); COLOR,URINE YELLOW (YELLOW); PH,URINE 8.5 (5.0-8.0)
[2016-05-20 01:01] LABS: OCCULT BLOOD,URINE TRACE (NEGATIVE); UROBILINOGEN,URINE NORMAL (NORMAL)
[2016-05-20] MEDS ORDERED: HYDROmorphone 0.5 mg/0.5 mL iSecure Syringe IVPUSH ONE (01:05)
[2016-05-20] MEDS ORDERED: _Ondansetron ODT 4 mg Tablet PO PRN (01:05)
[2016-05-20] MEDS ORDERED: Ondansetron 2 mg/mL 2 mL Inj IVPUSH ONE (01:05)
[2016-05-20] MEDS ORDERED: _HYDROcodone/APAP 5-325 mg Tablet PO PRN (01:05)
[2016-05-20 02:09] VITALS: BP 120/63; PULSE 74; RESP 14; O2SAT 99
--- NOTE | 2016-05-20 06:36 | DRSVH ---
PROCEDURE: X-RAY CHEST ONE VIEW, PORTABLE ([id number]) INDICATIONS: sharp CP, coughing up blood TECHNIQUE: One view of the chest was acquired. COMPARISON: None. FINDINGS: Surgical changes and devices: A lateral nipple piercings are present. Lungs and pleura: No pleural effusions or pneumothorax. Lungs are clear. Mediastinum: Mediastinal contours appear normal. Heart size is normal. Bones and chest wall: No suspicious bony lesions. Overlying soft tissues appear unremarkable. IMPRESSION: No acute cardiopulmonary findings. Dictated by: Charissa Lorenzo M.D. on 05/20/2016 at 6:34 Approved by: Charissa Lorenzo M.D. on 05/20/2016 at 6:34
== END 2016-05-20 02:10 | disposition home or self-care (01) ==
LOC: SED 22:16
DX: O26.891 Other specified pregnancy related conditions, first trimester (principal); R07.9 Chest pain, unspecified; R05 Cough; Z3A.01 Less than 8 weeks gestation of pregnancy; Z88.8 Allergy status to other drugs, medicaments and biological substances
CPT/HCPCS: 71010; 80053; 81000; 81025; 83735; 84484; 84702; 85025; 85378; 85610; 85730; 87086; 87088; 93005; 96374; 96375; 96376; 99285; J1170; J2405

== ENCOUNTER 2016-06-03 09:35 | Emergency (ER) | payer OTHER ==
[~2016-06-03] VITALS: Ht 165.1 cm; Wt 50.0 kg
[2016-06-03 09:39] VITALS: BP 108/70; PULSE 95; RESP 16; O2SAT 100
--- NOTE | 2016-06-03 09:56 | ED.REPORT ---
HPI-Dyspnea / Wheezing Date of Service Jun 03, 2016 ED Provider: Gallito Ellsworth MD Pt is a 21 y.o. female who reports being 8 weeks with a hx of frequent UTI's, chronic back pain, and fibromyalgia who presents to the ED c/o sharp chest pain radiating to her back onset last night. She reports associated congestion and cough (described as productive with blood) onset 4 weeks ago as well as nausea and vomiting onset this morning. Pt states she was dx with bronchitis by her PCP, Judi Batres, and is concerned that her sx have yet to resolve. She states that she was only prescribed Zofran for nausea and that it provided no relief for her nausea and vomiting this morning. She denies lower extremity edema. She reports taking 400mg ibuprofen and 650mg Tylenol 2 hours prior to arrival. The pt has four prior ED visits this year at this facility, her most recent being 05/19/16 for chest pain and productive bloody cough. Pt is followed by an [employer] [facility] from [facility], she is unsure of the physicians name. Nursing Notes Stated Complaint: CHEST PAIN/SOB Chief Complaint: Respiratory Complaints Nursing Notes Reviewed: Yes Allergies: Coded Allergies: ketorolac (Verified Allergy, Unknown, tremors, nausea and vomiting, ) tramadol (Verified Allergy, Unknown, "sick", 05/19/16) Scheduled ([Implanon]) 68 MG IMPLANT Q3 years Current Implanon (etonogestrel) implant (L. arm) inserted on 10/06/2011 and will on 10/05/2014. Cephalexin (Cephalexin) 500 Mg Capsule 500 MG PO TID Ciprofloxacin (Cipro) 250 Mg Tablet 500 MG PO BID Ciprofloxacin (Ciprofloxacin) 500 Mg Tablet 500 MG PO BID Cyclobenzaprine (Cyclobenzaprine) 10 Mg Tablet 10 MG PO HS Phenazopyridine (Phenazopyridine) 200 Mg Tablet 200 MG PO TID Sulfamethoxazole/Trimeth 800-160 mg (Bactrim DS) 1 Each Tablet 1 TABLET PO BID Scheduled PRN ([Oxycodone Hcl]) 5 MG TABLET 5-10 MG PO Q4H PRN PRN For Pain Hydrocodone-Acetaminophen 5-325 mg (Hydrocodone-Acetaminophen 5-325 mg) 1 Each Tablet 1 TABLET PO Q4H PRN PRN For Pain Hydrocodone-Acetaminophen 5-325 mg (Hydrocodone-Acetaminophen 5-325 mg) 1 Each Tablet 1 TABLET PO Q4H PRN PRN For Pain Ondansetron ODT (Zofran ODT) 4 Mg Tablet 4 MG PO Q4H PRN PRN For Nausea Ondansetron ODT (Zofran ODT) 4 Mg Tablet 4 MG PO Q4H PRN PRN For Nausea Ondansetron ODT (Zofran ODT) 4 Mg Tablet 4 MG PO Q4H PRN PRN For Nausea oxyCODONE-Acetaminophen 5-325 mg (oxyCODONE-Acetaminophen 5-325 mg) 1 Each Tablet 1-2 TAB PO Q6H PRN PRN For Pain General Time Seen by MD: 09:55 Chief Complaint Cough Hx Obtained From: Patient Arrived By: Walk-in Sudden in Onset?: Yes Onset Occurred: Yesterday Context of Onset: Bronchitis Symptom Duration: Since onset Location: : Substernal Quality: Painful Severity: Current: Severe Recent Healthcare: Recent doctor visit Similar Sx Previous: Yes Past Medical History Past Medical History Fibromyalgia Migraines Anxiety medicated with Xanax Pineal gland cyst Chronic back pain Past Surgical History lara fundoplication Reports: Appendectomy, Tonsillectomy Smoking History Never Smoker Social History Alcohol Use: "Social" Drug Use: Denies drug use Other Social History: Good social support Ambulatory Status Independent Review of Systems Ears / Nose / Throat: Reports: Nasal congestion Respiratory: Reports: Prod cough, bloody (2) Cardiovascular: Reports: Chest pain, Denies: Edema Musculoskeletal: Reports: Back pain Complete sys rev & neg: except as marked. GI: Reports: Nausea, Vomiting Female: Reports: Physical Exam Initial Vital Signs Vital Signs (First) Date Time Temp Pulse Resp B/P Pulse Ox O2 Delivery O2 Flow Rate FiO2 06/03/16 09:39 36.5 95 16 108/70 100 Room Air Initial VS: Reviewed Head / Eyes: Atraumatic, Normocephalic, PERRL Extremities: Vascular intact, Neuro intact, No swelling Skin: Warm, Dry, No cyanosis Neurologic: Alert, Oriented, Nonfocal Psychiatric: Mood/affect normal, Behavior normal, Normal thought content General/Constitutional: Awake, Alert, Well appearing, Well developed, Well hydrated, Well nourished, Not toxic appearing Neck: Atraumatic, Supple, No adenopathy Respiratory / Chest: Atraumatic, Breath sounds NL, Breath sounds = bilat, No respiratory distress, No rales, No rhonchi, No wheezing Cardiovascular: Heart rate NL, Regular rhythm, Heart sounds NL, No gallop, No murmurs No lower extremity edema Abdomen: Atraumatic, Soft, No distention Tenderness/Guarding/Rebound: Positive: Tender suprapubic (Mild) Interpretation & Diagnostics Lab Results Interpretation Result Diagram: 06/03/16 1047 06/03/16 1047 Test 06/03/16 10:47 06/03/16 11:58 White Blood Count 6.6th/mm3 (3.8-10.1) Red Blood Count 4.36mil/mm3 (3.90-5.20) Hemoglobin 13.3g/dL (12.0-15.6) Hematocrit 38.8% (35.0-46.0) Mean Corpuscular Volume 89.0fL (81-100) Mean Corpuscular Hemoglobin 30.5pg (27.0-35.0) Mean Corpuscular Hemoglobin Concent 34.3% (32.0-37.0) Red Cell Distribution Width 13.3% (12.3-15.4) Platelet Count 193bil/L (150-400) Neutrophils (%) (Auto) 70.9% (40-74) Lymphocytes (%) (Auto) 17.0% (14-46) Monocytes (%) (Auto) 10.5% (4-12) Eosinophils (%) (Auto) 1.1% (0-5) Basophils (%) (Auto) 0.3% (0-3) D-Dimer < 0.50mg/L FEU (<0.50) Sodium Level 135mEq/L (134-144) Potassium Level 4.2mEq/L (3.5-5.2) Chloride Level 100mEq/L (97-108) Carbon Dioxide Level 20mmol/L (18-29) Blood Urea Nitrogen 6mg/dL (6-20) Creatinine 0.51mg/dL (0.57-1.00) Estimat Glomerular Filtration Rate 214mL/min (>59) Glucose Level 97mg/dL (60-99) Calcium Level 9.5mg/dL (8.5-10.1) Total Bilirubin 0.8mg/dL (0.0-1.2) Aspartate Amino Transf (AST/SGOT) 15U/L (0-50) Alanine Aminotransferase (ALT/SGPT) 11U/L (0-32) Alkaline Phosphatase 61U/L (25-150) Total Protein 7.2g/dL (6.4-8.4) Albumin 4.3g/dL (3.4-5.0) Urine Color Straw (YELLOW) Urine Appearance Cloudy (CLEAR,HAZY) Urine pH 8.0 (5.0-8.0) Urine Specific [place] 1.011 (1.003-1.035) Urine Protein Negativemg/dL (NEG,TRACE) Urine Glucose (UA) Negativemg/dL (NEGATIVE) Urine Ketones Negativemg/dL (NEGATIVE) Urine Occult Blood Trace (NEGATIVE) Urine Nitrite Negative (NEGATIVE) Urine Bilirubin Negative (NEGATIVE) Urine Urobilinogen Normalmg/dL (NORMAL) Urine Leukocyte Esterase Moderate (NEGATIVE) Urine RBC 0-2/hpf (0-2) Urine WBC 6-10/hpf (0-5) Urine Epithelial Cells Many/hpf (NONE-MOD) Urine Crystals None seen (NONE SEEN) Urine Bacteria Moderate/hpf (NONE-FEW) Urine Hyaline Casts None/lpf (NONE) Urine Granular Casts None seen (NONE SEEN) Urine Waxy Casts None seen (NONE SEEN) Urine Red Blood Cell Casts None seen (NONE SEEN) Urine White Blood Cell Casts None seen (NONE SEEN) Urine Mucus None seen (None Seen) Urine Trichomonas None seen (NONE SEEN) Urine Yeast Moderate (NONE SEEN) Urinalysis Comment None Urine Culture Reflexed Indicated ECG Interpretation Time: 09:59 Interpreted by: ED physician Normal ECG Interpretation: Normal rate (69), Normal sinus rhythm, No acute ischemic changes X-Ray Chest Interpretation Chest Xray Interpretation: IMPRESSION: No acute pulmonary process. Dictated by: Bria Castillo M.D. on 06/03/2016 at 11:13 Approved by: Bria Castillo M.D. on 06/03/2016 at 11:14 Re-Eval/Medical Decision Med Decision/Clinical Course 21-year-old female in first trimester who is a frequent ED visitor. Primary complaint today of pleuritic chest pain, pulmonary embolus and ruled out by negative d-dimer, chest x-ray is normal she is exhibiting a great deal of pain behavior without objective findings. Her Report of having vomited the Vicodin we gave her without evidence that she actually vomited is troubling. She left the department precipitously and without receiving her discharge instructions or prescription for antibiotics after being informed she would not receive controlled substances for her pain. Source of Hx: Old records Re-Evaluation/Progress #1: Time of Eval: 10:32 Re-Evaluation/Progress Note: Discussed need for chest x-ray with abdominal shielding with pt, she understands and agrees with plan. Discussed possibility of PE and need for D-dimer and risks of CT imaging. Re-Evaluation/Progress #2: Time of Eval: 11:59 Re-Evaluation/Progress Note: Immediately after she was given Narcotic she states she vomited into the sink. No evidence of emesis in basin per nurse. Re-Evaluation/Progress #3: Time of Eval: 12:57 Re-Evaluation/Progress Note: Pt rechecked. Pt states she is still in pain. Discussed possible UTI and normal D-dimer and chest x-ray. Pt understands and agrees with plan for discharge. Re-Evaluation/Progress #4: Time of Eval: 13:04 Re-Evaluation/Progress Note: Left without discharge instruction. Will call pt regarding how to pick-up her prescriptions at the pharmacy. Counseled Regarding: Diagnosis, Lab results, Need for follow-up, When/why to return to ED Discharge & Departure Impression: Primary Impression: Chest pain Chest pain type: pleurodynia Qualified Code: R07.81 - Pleurodynia Additional Impression: Urinary tract infection Urinary tract infection type: acute cystitis Hematuria presence: without hematuria Qualified Code: N30.00 - Acute cystitis without hematuria Disposition: Home Discharge Condition All VS Reviewed: Yes Condition: Improved Patient Instructions: Costochondritis (ED) Additional Instructions: ED evaluation included interview exam ecg labs, review of past records and chest x-ray. No serious cause for chest pain is found. May use acetaminaphen and ibuprofen as needed for pain. Ibuprofen 600mg 3-4 times a day, take with food. Follow-up with primary care next week. Return to emergency department for fevers shaking chills or difficulty breathing. Referrals: Judi Batres (PCP) Scribe Attestation Portions of this note were transcribed by Chris Worthington. IDr. Ellsworth personally performed the history, physical exam and medical decision-making; I reviewed and confirmed the accuracy of the information in the transcribed note. Signed by: Deidra Jackson, 06/03/16 and 1323. copies to: Judi Batres Donald L MD Jun 03, 2016 09:56 CHRIS WORTHINGTON Jun 03, 2016 09:58
[2016-06-03] MEDS ORDERED: 0.9% Sodium Chloride 1,000 ML IV ONE (10:39)
[2016-06-03] MEDS ORDERED: HYDROcodone-APAP 5-325 mg Tablet PO ONE (10:40)
[2016-06-03] MEDS ORDERED: Ondansetron 2 mg/mL 2 mL Inj IVPUSH ONE (10:40)
[2016-06-03 10:59] VITALS: BP 107/59; PULSE 70; RESP 15; O2SAT 99
[2016-06-03 11:13] LABS: BASOPHILS % (AUTO) 0.3 % (0-3); EOSINOPHILS % (AUTO) 1.1 % (0-5); MONOCYTES % (AUTO) 10.5 % (4-12); Mean Corpuscular Hemoglobin 30.5 pg (27.0-35.0); NEUTROPHILS % (AUTO) 70.9 % (40-74); Platelet Count 193 bil/L (150-400)
--- NOTE | 2016-06-03 11:15 | DRSVH ---
PROCEDURE: X-RAY CHEST ONE VIEW, PORTABLE ([id number]) INDICATIONS: chest pain TECHNIQUE: One view of the chest was acquired. COMPARISON: [facility], CR, XR CHEST 1VW (PORTABLE), 05/19/2016, 22:38. FINDINGS: Surgical changes and devices: None. Lungs and pleura: No pleural effusions or pneumothorax. Lungs are clear. Mediastinum: Mediastinal contours appear normal. Heart size is normal. Bones and chest wall: No suspicious bony lesions. Overlying soft tissues appear unremarkable. IMPRESSION: No acute pulmonary process. Dictated by: Bria Castillo M.D. on 06/03/2016 at 11:13 Approved by: Bria Castillo M.D. on 06/03/2016 at 11:14
[2016-06-03 12:25] LABS: APPEARANCE,URINE CLOUDY (CLEAR,HAZY); COLOR,URINE STRAW (YELLOW); OCCULT BLOOD,URINE TRACE (NEGATIVE); UROBILINOGEN,URINE NORMAL (NORMAL)
[2016-06-03 12:26] LABS: YEAST,URINE MODERATE (NONE SEEN)
[2016-06-03 12:42] VITALS: BP 110/56; PULSE 69; RESP 13; O2SAT 99
[2016-06-03] MEDS ORDERED: CEPH500C PO (13:16)
== END 2016-06-03 13:04 | disposition home or self-care (01) ==
LOC: SED 09:35
DX: O99.89 Other specified diseases and conditions complicating pregnancy, childbirth and the puerperium (principal); R07.81 Pleurodynia; O23.41 Unspecified infection of urinary tract in pregnancy, first trimester; Z3A.08 8 weeks gestation of pregnancy; Z79.899 Other long term (current) drug therapy; Z88.8 Allergy status to other drugs, medicaments and biological substances
CPT/HCPCS: 36415; 71010; 80053; 81000; 85025; 85378; 87086; 87088; 90791; 93005; 96361; 96374; 99285; J2405; J7030

== ENCOUNTER 2016-06-19 16:58 | Emergency (ER) | payer OTHER ==
[~2016-06-19] VITALS: Ht 165.1 cm; Wt 48.6 kg
[~2016-06-19 16:58] MED LIST changes: +CEPH500C PO
[2016-06-19 17:19] VITALS: BP 121/72; PULSE 85; RESP 16; O2SAT 100
[2016-06-19 18:09] LABS: BASOPHILS % (AUTO) 0.2 % (0-3); EOSINOPHILS % (AUTO) 1.5 % (0-5); MONOCYTES % (AUTO) 8.9 % (4-12); Mean Corpuscular Hemoglobin 30.8 pg (27.0-35.0); Mean Corpuscular Volume 88.4 fL (81-100); NEUTROPHILS % (AUTO) 67.8 % (40-74); Platelet Count 222 bil/L (150-400)
--- NOTE | 2016-06-19 19:42 | ED.REPORT ---
HPI-General Illness Date of Service June 19, 2016 ED Provider: Cyril Gomez MD Pt is a 11 wk 21 y/o female w/ a hx of frequent UTIs and pyelo presenting to the ED c/o bilateral flank pain onset 2 days ago. The patient was seen at her PCP last week and treated for UTI with an antibiotic which she does not know the name of. She has been having worsening symptoms with bilateral flank pain. She is being followed by [facility] in [place] and was seen by OBGYN Dr. Baker who told her that given her ongoing UTI symptoms and concern for pyelonephritis in she should go to the ED with hopes for admission. She c/o associated nausea, vomiting, lower abdominal pain, milky-appearing vaginal discharge. She denies vaginal bleeding, foul smelling vaginal discharge. heart tones in clinic were 170 bpm. This is her first . Nursing Notes Stated Complaint: POSS KIDNEY INFECTION/ Chief Complaint: Female Abdominal Pain Nursing Notes Reviewed: Yes Allergies: Coded Allergies: ketorolac (Verified Allergy, Unknown, tremors, nausea and vomiting, ) tramadol (Verified Allergy, Unknown, "sick", 06/19/16) Scheduled ([Implanon]) 68 MG IMPLANT Q3 years Current Implanon (etonogestrel) implant (L. arm) inserted on 10/06/2011 and will on 10/05/2014. Cephalexin (Cephalexin) 500 Mg Capsule 500 MG PO TID Ciprofloxacin (Cipro) 250 Mg Tablet 500 MG PO BID Ciprofloxacin (Ciprofloxacin) 500 Mg Tablet 500 MG PO BID Cyclobenzaprine (Cyclobenzaprine) 10 Mg Tablet 10 MG PO HS Phenazopyridine (Phenazopyridine) 200 Mg Tablet 200 MG PO TID Sulfamethoxazole/Trimeth 800-160 mg (Bactrim DS) 1 Each Tablet 1 TABLET PO BID Scheduled PRN ([Oxycodone Hcl]) 5 MG TABLET 5-10 MG PO Q4H PRN PRN For Pain Hydrocodone-Acetaminophen 5-325 mg (Hydrocodone-Acetaminophen 5-325 mg) 1 Each Tablet 1 TABLET PO Q4H PRN PRN For Pain Hydrocodone-Acetaminophen 5-325 mg (Hydrocodone-Acetaminophen 5-325 mg) 1 Each Tablet 1 TABLET PO Q4H PRN PRN For Pain Ondansetron ODT (Zofran ODT) 4 Mg Tablet 4 MG PO Q4H PRN PRN For Nausea Ondansetron ODT (Zofran ODT) 4 Mg Tablet 4 MG PO Q4H PRN PRN For Nausea Ondansetron ODT (Zofran ODT) 4 Mg Tablet 4 MG PO Q4H PRN PRN For Nausea oxyCODONE-Acetaminophen 5-325 mg (oxyCODONE-Acetaminophen 5-325 mg) 1 Each Tablet 1-2 TAB PO Q6H PRN PRN For Pain General Time Seen by MD: 19:22 Chief Complaint Other (Flank pain) Hx Obtained From: Patient Arrived By: Walk-in Sudden in Onset?: No Onset Occurred: 2 days ago Symptom Duration: Since onset Location: : Abdomen: Back Quality: Painful Severity: Current: Moderate Severity: Maximum: Moderate Recent Healthcare: Recent doctor visit Past Medical History Past Medical History Fibromyalgia Migraines Anxiety medicated with Xanax Pineal gland cyst Chronic back pain Frequent UTIs Frequent pyelonephritis Past Surgical History lara fundoplication Reports: Appendectomy, Tonsillectomy Smoking History Never Smoker Social History Alcohol Use: "Social" Drug Use: Denies drug use Other Social History: Good social support Ambulatory Status Independent Review of Systems Full Review of Systems Constitutional: Reports: Chills, Fever Respiratory: Denies: Non-productive cough, Shortness of breath GI: Reports: Abdominal pain, Nausea, Vomiting, Denies: Hematemesis Female: Reports: Dysuria, Flank pain, Vaginal discharge, Denies: Vaginal bleeding - abnl Complete sys rev & neg: except as marked. Physical Exam Vital Signs Vital Signs Date Time Temp Pulse Resp B/P Pulse Ox O2 Delivery O2 Flow Rate FiO2 06/19/16 17:19 36.0 85 16 121/72 100 Room Air Initial VS: Reviewed, Vital signs normal Head / Eyes: Atraumatic, Normocephalic, PERRL ENT: Mucous membranes moist, Conjunctiva normal, No scleral icterus Neck: Supple, Full range of motion Respiratory: Breath sounds normal, Clear to auscultation, No respiratory distress Cardiovascular: Regular rate & rhythm, Heart sounds normal, Intact distal pulses Extremities: Vascular intact, Neuro intact, No swelling, No tenderness Skin: Warm, Dry, No cyanosis Neurologic: Alert, Oriented, Nonfocal Psychiatric: Mood/affect normal, Behavior normal, Normal thought content General/Constitutional: Awake, Alert, Cooperative, Not toxic appearing Distress / Hydration: Positive: Distress mild Appearance / Presentation: Positive: Ill appearing/not toxic Abdomen: Atraumatic, Soft, Non-tender, No guarding, No rebound, No distention Back: Atraumatic, Full range of motion Percussive flank tenderness bilaterally Interpretation & Diagnostics Lab Results Interpretation Result Diagram: 06/19/16 1755 06/19/16 1755 Test 06/19/16 17:35 06/19/16 17:55 06/19/16 19:58 Urine Color Yellow (YELLOW) Urine Appearance Cloudy (CLEAR,HAZY) Urine pH 6.0 (5.0-8.0) Urine Specific [place] 1.030 (1.003-1.035) Urine Protein 30mg/dL (NEG,TRACE) Urine Glucose (UA) Negativemg/dL (NEGATIVE) Urine Ketones Negativemg/dL (NEGATIVE) Urine Occult Blood Moderate (NEGATIVE) Urine Nitrite Negative (NEGATIVE) Urine Bilirubin Negative (NEGATIVE) Urine Urobilinogen Normalmg/dL (NORMAL) Urine Leukocyte Esterase Small (NEGATIVE) Urine RBC 3-10/hpf (0-2) Urine WBC 0-5/hpf (0-5) Urine Epithelial Cells Moderate/hpf (NONE-MOD) Urine Crystals None seen (NONE SEEN) Urine Bacteria Few/hpf (NONE-FEW) Urine Hyaline Casts None/lpf (NONE) Urine Granular Casts None seen (NONE SEEN) Urine Waxy Casts None seen (NONE SEEN) Urine Red Blood Cell Casts None seen (NONE SEEN) Urine White Blood Cell Casts None seen (NONE SEEN) Urine Mucus None seen (None Seen) Urine Trichomonas None seen (NONE SEEN) Urine Yeast None (NONE SEEN) Urinalysis Comment None Urine Culture Reflexed Indicated White Blood Count 11.7th/mm3 (3.8-10.1) Red Blood Count 4.39mil/mm3 (3.90-5.20) Hemoglobin 13.5g/dL (12.0-15.6) Hematocrit 38.8% (35.0-46.0) Mean Corpuscular Volume 88.4fL (81-100) Mean Corpuscular Hemoglobin 30.8pg (27.0-35.0) Mean Corpuscular Hemoglobin Concent 34.8% (32.0-37.0) Red Cell Distribution Width 13.2% (12.3-15.4) Platelet Count 222bil/L (150-400) Neutrophils (%) (Auto) 67.8% (40-74) Lymphocytes (%) (Auto) 21.4% (14-46) Monocytes (%) (Auto) 8.9% (4-12) Eosinophils (%) (Auto) 1.5% (0-5) Basophils (%) (Auto) 0.2% (0-3) Sodium Level 134mEq/L (134-144) Potassium Level 3.6mEq/L (3.5-5.2) Chloride Level 97mEq/L (97-108) Carbon Dioxide Level 22mmol/L (18-29) Blood Urea Nitrogen 10mg/dL (6-20) Creatinine 0.53mg/dL (0.57-1.00) Estimat Glomerular Filtration Rate 205mL/min (>59) Glucose Level 81mg/dL (60-99) Calcium Level 8.9mg/dL (8.5-10.1) Magnesium Level 2.0mg/dL (1.6-2.6) Total Bilirubin 0.6mg/dL (0.0-1.2) Aspartate Amino Transf (AST/SGOT) 14U/L (0-50) Alanine Aminotransferase (ALT/SGPT) 8U/L (0-32) Alkaline Phosphatase 57U/L (25-150) Total Protein 7.3g/dL (6.4-8.4) Albumin 4.0g/dL (3.4-5.0) Lipase 20U/L (13-60) HCG Beta Subunit [id number]/mL Hold [place] Top Tube Received (Received) Hold Urine Received (Received) Re-Eval/Medical Decision Med Decision/Clinical Course Pt is a 11 wk 21 y/o female w/ a hx of frequent UTIs and pyelo presenting to the ED c/o bilateral flank pain onset 2 days ago. The patient was seen at her PCP last week and treated for UTI with an antibiotic which she does not know the name of. She has been having worsening symptoms with bilateral flank pain. She is being followed by [facility] in [place] and was seen by OBGYN Dr. Baker who told her that given her ongoing UTI symptoms and concern for pyelonephritis in she should go to the ED with hopes for admission. She c/o associated nausea, vomiting, lower abdominal pain, milky-appearing vaginal discharge. She denies vaginal bleeding, foul smelling vaginal discharge. heart tones in clinic were 170 bpm. This is her first . Here in the emergency department the patient is afebrile stable vital signs and examination as above. Laboratory studies notable as below: CBC unremarkable except for borderline leukocytosis CMP unremarkable Urinalysis revealed many epithelial cells, small leuk esterase, negative nitrites and few bacteria HCG 23,000 I am called to the patient's bedside as the nurse states that she was attempting to elope from the emergency department. I discussed with the patient the concern about possible pyelonephritis and that this is extremely dangerous in the setting of as it can cause miscarriage or other serious problems. At the time that I evaluated the patient her urinalysis was still pending. During my conversation with the patient she did express desire for narcotic pain medications. I advised the patient that we would address her pain shortly though that I was hesitant to administer narcotics. The patient agreed to remain in the emergency department for full evaluation including pelvic exam and likely admission. Shortly thereafter I was informed by the patient's nurse that she had eloped. I had not yet been able to perform pelvic examination, review her lab results with her or admit her to the hospital. Of note, I was approached by our PA Francisco Quiroz who had apparently spoken with the physician who sent her to the emergency room. Conversation there is significant concern that the patient may have been seeking narcotic pain medications. While I cannot definitively doubt serious infection in this patient as she eloped prior to completing my evaluation it seems based upon her highly abnormal behavior that she may have been involved and secondary gain. Prior to the patient's elopement I expressed my serious concerns with her and the importance of remaining in the emergency room. She clearly made an informed decision to leave prior to completing her workup and I see no evidence that she did not have decisional capacity to do so. Hopefully she will return so that she can be appropriately cared for during her . Source of Hx: Old records, Private physician Time of Eval: 21:00 Re-Evaluation/Progress Note: Patient eloped despite informing her that she may need to be admitted. Counseled Regarding: Diagnosis, Lab results, Need for follow-up, When/why to return to ED Discharge & Departure Primary Impression: Flank pain Additional Impressions: History of elopement from health care facility Weeks of gestation: 11 weeks Qualified Code: Z3A.11 - 11 weeks gestation of Pyelonephritis Vaginal discharge during Trimester: first trimester Qualified Code: O26.891 - Other specified related conditions, first trimester Discharge Condition All VS Reviewed: Yes Condition: Stable Referrals: Judi Batres (PCP) Deidra Attestation Portions of this note were transcribed by Augusto Chavira. I, Dr. Gomez personally performed the history, physical exam and medical decision-making; I reviewed and confirmed the accuracy of the information in the transcribed note. Signed by Deidra Faulkner, 06/19/161949 copies to: Judi Batres Beck O MD June 19, 2016 19:42 AUGUSTO CHAVIRA June 19, 2016 19:44
[2016-06-19 21:01] LABS: APPEARANCE,URINE CLOUDY (CLEAR,HAZY); COLOR,URINE YELLOW (YELLOW); OCCULT BLOOD,URINE MODERATE (NEGATIVE); UROBILINOGEN,URINE NORMAL (NORMAL)
== END 2016-06-19 20:50 | disposition left against medical advice (07) ==
LOC: SED 16:58
DX: O26.891 Other specified pregnancy related conditions, first trimester (principal); N12 Tubulo-interstitial nephritis, not specified as acute or chronic; N89.8 Other specified noninflammatory disorders of vagina; M79.7 Fibromyalgia; Z3A.11 11 weeks gestation of pregnancy; Z88.5 Allergy status to narcotic agent; Z88.8 Allergy status to other drugs, medicaments and biological substances

== ENCOUNTER 2016-07-02 14:33 | Emergency (ER) | payer OTHER ==
[~2016-07-02] VITALS: Ht 165.1 cm; Wt 49.1 kg
[2016-07-02 14:42] VITALS: BP 118/79; PULSE 103; RESP 14; O2SAT 100
--- NOTE | 2016-07-02 15:21 | ED.REPORT ---
HPI-Psychiatric Illness Date of Service July 02, 2016 ED Provider: Dereje Milian MD The patient is a 21 year old female at three months with a medical history including fibromyalgia, anxiety, PTSD, and depression who presents to the ED via EMS with concern for suicidal ideation onset just prior to arrival. The patient got into an argument with her fiance today which ended with her storming away holding a loose cord and a knife. Knowing the patient struggles with depression, her fiance became concerned that she was suicidal with a plan to hang herself. The patient recognizes this implication but reports that it was only a "bad moment" and denies any suicidal intent, active suicidal ideation, or previous suicide attempts. She also denies feeling unsafe in her living situation or during the argument with her fiance today. EMS found the patient with a BP of 128/80, a pulse of 108, and otherwise normal vital signs. Her only complaint currently is a residual cough from a recent illness that is currently improving. The patient was recently in the ED on 06/19/16 with pyelonephritis but eloped from the department during that visit. Nursing Notes Stated Complaint: SUICIDAL IDEATION Chief Complaint: Psychiatric Complaint Nursing Notes Reviewed: Yes Allergies: Coded Allergies: ketorolac (Verified Allergy, Unknown, tremors, nausea and vomiting, ) tramadol (Verified Allergy, Unknown, "sick", 06/19/16) Scheduled ([Implanon]) 68 MG IMPLANT Q3 years Current Implanon (etonogestrel) implant (L. arm) inserted on 10/06/2011 and will on 10/05/2014. Cephalexin (Cephalexin) 500 Mg Capsule 500 MG PO TID Ciprofloxacin (Cipro) 250 Mg Tablet 500 MG PO BID Ciprofloxacin (Ciprofloxacin) 500 Mg Tablet 500 MG PO BID Cyclobenzaprine (Cyclobenzaprine) 10 Mg Tablet 10 MG PO HS Phenazopyridine (Phenazopyridine) 200 Mg Tablet 200 MG PO TID Sulfamethoxazole/Trimeth 800-160 mg (Bactrim DS) 1 Each Tablet 1 TABLET PO BID Scheduled PRN ([Oxycodone Hcl]) 5 MG TABLET 5-10 MG PO Q4H PRN PRN For Pain Hydrocodone-Acetaminophen 5-325 mg (Hydrocodone-Acetaminophen 5-325 mg) 1 Each Tablet 1 TABLET PO Q4H PRN PRN For Pain Hydrocodone-Acetaminophen 5-325 mg (Hydrocodone-Acetaminophen 5-325 mg) 1 Each Tablet 1 TABLET PO Q4H PRN PRN For Pain Ondansetron ODT (Zofran ODT) 4 Mg Tablet 4 MG PO Q4H PRN PRN For Nausea Ondansetron ODT (Zofran ODT) 4 Mg Tablet 4 MG PO Q4H PRN PRN For Nausea Ondansetron ODT (Zofran ODT) 4 Mg Tablet 4 MG PO Q4H PRN PRN For Nausea oxyCODONE-Acetaminophen 5-325 mg (oxyCODONE-Acetaminophen 5-325 mg) 1 Each Tablet 1-2 TAB PO Q6H PRN PRN For Pain General Time Seen by MD: 15:20 Chief Complaint Suicidal ideation Hx Obtained From: Patient Arrived By: Ambulance Onset Occurred: Just prior to arrival Context of Onset: Problem with spouse Symptom Duration: Since onset Severity: Current: No pain currently Severity: Maximum: No pain Related History: Reports: Anxiety, Depression, Denies: Prior suicide attempt(s) Immunizations: Unknown Risk-Psychiatric Illness Suicide Risk Stratification Suicide Risk Factors - Adult: No: Previous attempt, Prior psych admission, Substance abuse RF Statements: Risk factors reviewed Past Medical History Past Medical History Notes: [employer]: Dr. Baker Past Medical History Fibromyalgia Migraines Anxiety medicated with Xanax PTSD Depression Pineal gland cyst Chronic back pain Frequent UTIs Frequent pyelonephritis Currently being worked up for MS (07/02/2016) Past Surgical History Blanca fundoplication Reports: Appendectomy, Tonsillectomy Smoking History Former Smoker (Quit 04/2016) Social History Alcohol Use: "Social" Drug Use: Denies drug use Other Social History: Good social support Ambulatory Status Independent Review of Systems Review of Systems Note: + Concern for suicidal ideation but patient denies Constitutional: Denies: Fever Respiratory: Reports: Non-productive cough, Denies: Shortness of breath GI: Denies: Diarrhea, Vomiting Psychiatric: Denies: Suicidal ideation Complete sys rev & neg: except as marked. Physical Exam Physical Exam Notes: Initial Vital Signs Vital Signs (First) Date Time Temp Pulse Resp B/P Pulse Ox O2 Delivery O2 Flow Rate FiO2 07/02/16 14:42 37.0 103 14 118/79 100 Room Air Initial VS: Reviewed Head / Eyes: Atraumatic, Normocephalic ENT: Conjunctiva normal, No scleral icterus Neck: Supple, Full range of motion Cardiovascular: Regular rate & rhythm, Heart sounds normal Skin: Warm, Dry, No cyanosis General/Constitutional: Awake, Alert, No acute distress Neurologic: Oriented X3, Speech NL Psychiatric: Affect NL, Not suicidal, Not homicidal, Cognitive function NL, Judgment/insight NL Respiratory / Chest: No respiratory distress, No rales Rales / Rhonchi: Positive: Rhonchi coarse L (Base) Abdomen: Soft, Non-tender Interpretation & Diagnostics URINE : Positive URINE DRUG SCREEN: Negative URINE DIPSTICK: Bedside Urine Specific [place] * 1.010 Bedside Urine pH * 5 Bedside Urine Leukocyte Esterase * ++ Bedside Urine Nitrite * Negative Bedside Urine Protein * Trace Bedside Urine Glucose * Normal Bedside Urine Ketones * Negative Bedside Urine Urobilinogen * Normal Bedside Urine Bilirubin * Negative Bedside Urine Occult Blood * Trace Urine to Lab * Yes Lab Results Interpretation Result Diagram: 07/02/16 1505 07/02/16 1505 Test 07/02/16 15:05 07/02/16 15:21 White Blood Count 8.3th/mm3 (3.8-10.1) Red Blood Count 4.14mil/mm3 (3.90-5.20) Hemoglobin 12.7g/dL (12.0-15.6) Hematocrit 37.0% (35.0-46.0) Mean Corpuscular Volume 89.4fL (81-100) Mean Corpuscular Hemoglobin 30.7pg (27.0-35.0) Mean Corpuscular Hemoglobin Concent 34.3% (32.0-37.0) Red Cell Distribution Width 13.0% (12.3-15.4) Platelet Count 214bil/L (150-400) Neutrophils (%) (Auto) 72.5% (40-74) Lymphocytes (%) (Auto) 19.2% (14-46) Monocytes (%) (Auto) 7.2% (4-12) Eosinophils (%) (Auto) 0.8% (0-5) Basophils (%) (Auto) 0.1% (0-3) Sodium Level 137mEq/L (134-144) Potassium Level 3.7mEq/L (3.5-5.2) Chloride Level 101mEq/L (97-108) Carbon Dioxide Level 23mmol/L (18-29) Blood Urea Nitrogen 7mg/dL (6-20) Creatinine 0.56mg/dL (0.57-1.00) Estimat Glomerular Filtration Rate 192mL/min (>59) Glucose Level 108mg/dL (60-99) Calcium Level 9.0mg/dL (8.5-10.1) Total Bilirubin 0.4mg/dL (0.0-1.2) Aspartate Amino Transf (AST/SGOT) 11U/L (0-50) Alanine Aminotransferase (ALT/SGPT) 9U/L (0-32) Alkaline Phosphatase 56U/L (25-150) Total Protein 6.8g/dL (6.4-8.4) Albumin 3.7g/dL (3.4-5.0) Thyroid Stimulating Hormone (TSH) 0.401uIU/mL (0.450-4.500) Hold Urine Received (Received) Re-Eval/Medical Decision Source of Hx: Old records Re-Evaluation/Progress : Time of Eval: 15:42 Patient Status: Condition improved Re-Evaluation/Progress Note: Discussed with patient lab results, diagnosis, and plan for discharge. She would prefer to follow-up with her regular counselor rather than consult with social work in the ED. Follow-up and return to the ER instructions given. Patient agrees with plan for care and all questions were addressed. Counseled Regarding: Diagnosis, Lab results, Need for follow-up, When/why to return to ED Discharge & Departure Impression: Primary Impression: Acute situational disturbance )( Condition at Discharge: No danger to self, No danger to others, No suicidal ideation, No homicidal ideation Disposition: Home Discharge Condition All VS Reviewed: Yes Condition: Improved Patient Instructions: Anxiety (ED) Additional Instructions: Thank you for entrusting us with your care today. Follow-up with your counselor as we discussed. Also call your primary care provider on Sunday for a follow-up appointment. If you are in crisis, call or return to the emergency department. Return to the ER with any new or worsening symptoms. Referrals: Judi Batres (PCP) Cassia Baker MD Scribe Attestation Portions of this note were transcribed by Chloe Villar. I, Dr. Milian, personally performed the history, physical exam, and medical decision-making; I reviewed and confirmed the accuracy of the information in the transcribed note. Signed by: Deidra Jhaveri, 07/02/2016, 16:35 copies to: Cassia Baker MD; Judi Batres Kirk H MD July 02, 2016 15:21 CHLOE VILLAR July 02, 2016 15:22
[2016-07-02 15:23] LABS: BASOPHILS % (AUTO) 0.1 % (0-3); EOSINOPHILS % (AUTO) 0.8 % (0-5); MONOCYTES % (AUTO) 7.2 % (4-12); Mean Corpuscular Hemoglobin 30.7 pg (27.0-35.0); Mean Corpuscular Volume 89.4 fL (81-100); NEUTROPHILS % (AUTO) 72.5 % (40-74); Platelet Count 214 bil/L (150-400)
== END 2016-07-02 15:56 | disposition home or self-care (01) ==
LOC: EDBD 14:33 → SED 14:33 → EDUNIT# 14:33 → SED 15:56
DX: O99.341 Other mental disorders complicating pregnancy, first trimester (principal); F43.0 Acute stress reaction; M79.7 Fibromyalgia; F41.9 Anxiety disorder, unspecified; F43.10 Post-traumatic stress disorder, unspecified; F32.9 Major depressive disorder, single episode, unspecified; Z3A.00 Weeks of gestation of pregnancy not specified; Z87.440 Personal history of urinary (tract) infections; Z87.891 Personal history of nicotine dependence; Z88.6 Allergy status to analgesic agent; Z88.5 Allergy status to narcotic agent

== ENCOUNTER 2016-09-10 15:59 | Inpatient (IN) | payer OTHER ==
[2016-09-10] MEDS ORDERED: Oxytocin 10 Unit/mL Inj IM PRN (16:30)
[2016-09-10] MEDS ORDERED: Ondansetron 2 mg/mL 2 mL Inj IVPUSH PRN (16:30)
[2016-09-10] MEDS ORDERED: Ampicillin Inj 2,000 MG in 0.9% Sodium Chloride 100 ML IV SCH (16:30)
[2016-09-10] MEDS ORDERED: Oxytocin 30 Units/500 mL LR 30 UNITS in IV Premix 1 EACH IV PRN (16:30)
[2016-09-10] MEDS ORDERED: Carboprost 250 mCg/mL Inj IM PRN (16:30)
[2016-09-10] MEDS ORDERED: Betameth Ace-Betam SodPhos 6 mg/mL 5 mL Inj IM STA (16:30)
[2016-09-10] MEDS ORDERED: Methylergonovine 0.2 mg/mL Inj IM PRN (16:30)
[2016-09-10] MEDS ORDERED: Hemorrhage Kit, Post Partum XX ONE (16:30)
[2016-09-10] MEDS ORDERED: Sodium Chloride LOK Flush 10 mL Syringe IVFLUSH PRN (16:30)
[2016-09-10] MEDS ORDERED: Lactated Ringer's 1,000 ML IV PRN (16:30)
--- NOTE | 2016-09-10 16:39 | PCM.HPOB ---
Subjective Referring Provider: Admitting Physician: Primary Care Physician: Nopcp Attending Physician: Allen Dougherty MD Chief Complaint SROM labor 23 weeks History of Present History of Present Illness This is a 21 year at 23 weeks 0 days with an ALICE 01/07/2017 per 9wk US at [facility] on 06/08. She presented at 1600 with PPROM. She states that she felt a water bottle amount of fluid release from her vaginally 1 am on Sunday09/08/16 and has had a small trickle of fluid since that point. 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 This is currently being managed by [facility] in [place]. Patient reports she has been clean now for 3 months. She has a history of recurrent UTI's, and has been treated twice already with antibiotics during this . Genetic testing done during second trimester aneuploidy screening was negative. OB History: (2), Para (0), (1) Past Medical History Surgical History: Hiatal hernia repair Hx Tobacco Use: Yes Hx Alcohol Use: No Hx Substance Use: Yes (currently on methadone) Genetic Screening/Counseling Genetic Screening/Counseling: Negative Allergy Coded Allergies: ketorolac (Verified Allergy, Unknown, tremors, nausea and vomiting, ) tramadol (Verified Allergy, Unknown, "sick", 06/19/16) Exam Vital Signs Exam tracing Baseline 160s Category 1 with moderate variability Constitutional: Well-developed, Well-nourished, Normal habitus HEENT: Atraumatic Lungs: Clear to Auscultation Heart: Exam Unremarkable Abdomen: Gravid Extremities: Warm, No Edema Gynecologic: Normal: Anus/Perineum, External Genitalia, Vagina/Pelvic Support, Abnormal: Cervix (appears closed on sterile speculum exam) Labs/Diagnostics Labs Laboratory Tests 72 Hours Test 09/10/16 17:04 White Blood Count 13.6th/mm3 (3.8-10.1) Red Blood Count 3.71mil/mm3 (3.90-5.20) Hemoglobin 11.3g/dL (12.0-15.6) Hematocrit 33.9% (35.0-46.0) Mean Corpuscular Volume 91.4fL (81-100) Mean Corpuscular Hemoglobin 30.5pg (27.0-35.0) Mean Corpuscular Hemoglobin Concent 33.3% (32.0-37.0) Red Cell Distribution Width 12.9% (12.3-15.4) Platelet Count 208bil/L (150-400) Maternal Blood Type: A (positive) Previous Infant with GBS: Unknown (collected at time of sterile speculum) Rubella: Immune Additional Information Hepatitis B negative hepatitis C negative HIV negative gonorrhea / chlamydia negative HSV 2 negative OB Intrapartum Assessment/Plan Problems: (1) labor in second trimester without delivery Status: Acute ICD Code: O60.02 (2) Premature rupture of membranes Plan: - Betamethasone given for lung maturity - PPROM antibiotics started - Magnesium sulfate for neuro prophylaxis - Expected transfer to [facility] Status: Acute ICD Code: O42.90 Attending Statement The patient was seen and examined together with Dr.Brook Olga MONSON on 2016 and I agree with the history, exam and plan as outlined in the note above. Hilary Espinoza DO Sep 10, 2016 16:39 Allen Dougherty MD Sep 10, 2016 17:34
[2016-09-10] MEDS ORDERED: Magnesium Sulf 4 Gm/100 mL H2O 4 GM in IV Premix 1 EACH IV ONE (16:40)
[2016-09-10] MEDS ORDERED: Magnesium Sulf 20 Gm/500mL H2O 20 GM in IV Premix 1 EACH IV SCH (16:40)
[2016-09-10] MEDS ORDERED: Calcium GLUCOnate 10% (Gm) 1 Gm/10 mL Inj IV PRN (16:40)
[2016-09-10 17:12] LABS: Mean Corpuscular Hemoglobin 30.5 pg (27.0-35.0); Mean Corpuscular Volume 91.4 fL (81-100)
--- NOTE | 2016-09-10 17:37 | PCM.DC.OB ---
Obstetrical Discharge Summary Date of Service Sep 10, 2016 Date of hospital admission Sep 10, 2016 at 16:30 Date of Discharge: Sep 10, 2016 Providers Admitting Physician: Allen Dougherty MD Primary Care Physician: Nopcp Attending Physician: Allen Dougherty MD Problems: (1) labor in second trimester without delivery Status: Acute ICD Code: O60.02 (2) Premature rupture of membranes Status: Acute ICD Code: O42.90 Brief History and Physical: This is a 21 year at 23 weeks 0 days with an ALICE 01/07/2017 per 9wk US at [facility] on 06/08. She presented at 1600 with PPROM. She states that she felt a water bottle amount of fluid release from her vaginally 1 am on Sunday09/08/16 and has had a small trickle of fluid since that point. 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 This is currently being managed by [facility] in [place]. Patient reports she has been clean now for 3 months. She has a history of recurrent UTI's, and has been treated twice already with antibiotics during this . Genetic testing done during second trimester aneuploidy screening was negative. Hospital Course: This is a 21 year at 23 weeks 0 days with an ALICE 01/07/2017 per 9wk US at [facility] on 06/08. She presented at 1600 with PPROM. She states that she felt a water bottle amount of fluid release from her vaginally 1 am on Sunday09/08/16 and has had a small trickle of fluid since that point. Patient examined with sterile speculum in triage showing no cervical dilation. Patient given azithromycin, ampicillin, betamethasone and magnesium sulfate. Patient was discussed with physical chemistry teacher at [facility], the physical chemistry teacher agreed to transfer of patient's care. Patient will be shipped. ([Implanon]) 68 MG IMPLANT Q3 years (Reported) Current Implanon (etonogestrel) implant (L. arm) inserted on 10/06/2011 and will on 10/05/2014. ([Oxycodone Hcl]) 5 MG TABLET 5-10 MG PO Q4H PRN PRN For Pain Prescribed by: VIVIANE SARMIENTO MD Cephalexin (Cephalexin) 500 Mg Capsule 500 MG PO TID Prescribed by: MICHELLE WATERMAN MD Ciprofloxacin (Cipro) 250 Mg Tablet 500 MG PO BID Prescribed by: VIVIANE SARMIENTO MD Ciprofloxacin (Ciprofloxacin) 500 Mg Tablet 500 MG PO BID Prescribed by: LINDSAY PHAM Cyclobenzaprine (Cyclobenzaprine) 10 Mg Tablet 10 MG PO HS (Reported) Hydrocodone-Acetaminophen 5-325 mg (Hydrocodone-Acetaminophen 5-325 mg) 1 Each Tablet 1 TABLET PO Q4H PRN PRN For Pain Prescribed by: AYAD YANG DO Hydrocodone-Acetaminophen 5-325 mg (Hydrocodone-Acetaminophen 5-325 mg) 1 Each Tablet 1 TABLET PO Q4H PRN PRN For Pain Prescribed by: LINDSAY PHAM Ondansetron ODT (Zofran ODT) 4 Mg Tablet 4 MG PO Q4H PRN PRN For Nausea Prescribed by: SANJAY FRIAS MD Ondansetron ODT (Zofran ODT) 4 Mg Tablet 4 MG PO Q4H PRN PRN For Nausea Prescribed by: AYAD YANG DO Ondansetron ODT (Zofran ODT) 4 Mg Tablet 4 MG PO Q4H PRN PRN For Nausea Prescribed by: ILNDSAY PHAM Phenazopyridine (Phenazopyridine) 200 Mg Tablet 200 MG PO TID (Reported) Sulfamethoxazole/Trimeth 800-160 mg (Bactrim DS) 1 Each Tablet 1 TABLET PO BID Prescribed by: CHAITANYA MONTE MD oxyCODONE-Acetaminophen 5-325 mg (oxyCODONE-Acetaminophen 5-325 mg) 1 Each Tablet 1-2 TAB PO Q6H PRN PRN For Pain Prescribed by: CHARU BAIRD MD Disposition Transferred to [facility] Attending Statement: The patient was seen and examined together with Hilary Apodaca DO on 09/10 and I agree with the history, exam and plan as outlined in the note above. Hilary Espinoza DO Sep 10, 2016 17:37 Allen Dougherty MD Sep 14, 2016 08:54
[2016-09-12] MEDS ORDERED: Amoxicillin-Clav 875-125 mg Tablet PO SCH (20:30)
== END 2016-09-10 18:23 | disposition short-term general hospital (02) | DRG 778 ==
LOC: FBCO 15:59 → FBC 16:30
PROVIDERS: ADMIT Obstetrics & Gynecology; ATTEND Obstetrics & Gynecology
PROC: 3E033GC Introduction of Other Therapeutic Substance into Peripheral Vein, Percutaneous Approach (ICD-10-PCS; principal; 2016-09-10)
DX: O60.02 Preterm labor without delivery, second trimester (principal); O42.912 Preterm premature rupture of membranes, unspecified as to length of time between rupture and onset of labor, second trimester; Z3A.23 23 weeks gestation of pregnancy